=== PATIENT | female | born 1930 | race Caucasian/White ===

== ENCOUNTER 2020-05-30 15:04 | Observation (INO) | payer MEDICARE, OTHER ==
[2020-05-30] MEDS ORDERED: Lactated Ringers 1,000 ML IV SCH (17:30)
[2020-05-30] MEDS ORDERED: Voltaren GEL TP PRN (17:48)
[2020-05-30] MEDS ORDERED: TYLENOL 325 MG PO PRN (17:48)
[2020-05-30] MEDS: Decadron 4 MG INJ IV SCH (19:05)
[2020-05-30 20:47] LABS: Hematocrit 48.9 % (35-47); Hemoglobin 15.4 gm/dl (12.0-16.0); Mean Cell Volume 94.2 fl (78-100); Mean Corpuscular Hemoglobin 29.7 pg (26-32); Mean Corpuscular Hgb Concent. 31.5 g/dl (32-36); Mean Platelet Volume 12.3 fl (7.5-11.0); Platelet Count 111 K/mm3 (150-450); Red Blood Count 5.19 M/mm3 (4.1-5.4); Red Cell Distribution Width 14.6 % (11.5-14.0); White Blood Count 3.4 K/mm3 (4.0-10.5)
[2020-05-30 21:52] LABS: Slide Review YES
[2020-05-30] MEDS ORDERED: Zestril 5 MG PO SCH (22:00)
[2020-05-30] MEDS ORDERED: DESYREL 50 MG PO SCH (22:00)
[2020-05-30 22:08] LABS: ANION GAP 11.3 MEQ/L (5-15); BLOOD UREA NITROGEN 17 mg/dL (7-17); CHLORIDE 103 mmol/L (98-107); Calcium 7.8 mg/dL (8.4-10.2); Carbon Dioxide 22 mmol/L (22-30); Creatinine 1 0.59 mg/dL (0.52-1.04); EST GLOMERULAR FILTRATION RATE > 60.0 ML/MIN; Glucose 137 mg/dL (74-106); PREALBUMIN 6.87 mg/dL (17.6-36.0); Potassium 4.1 mmol/L (3.5-5.1); SODIUM 132 mmol/L (137-145)
[2020-05-31] MEDS ORDERED: Lactated Ringers 1,000 ML IV ONE (04:48)
[2020-05-31] MEDS: Decadron 4 MG INJ IV SCH (06:55)
[2020-05-31] MEDS ORDERED: Lexapro 10 MG PO SCH (10:00)
[2020-05-31] MEDS ORDERED: NON-FORMULARY ITEM (Potassium Chloride [Potassium Chloride] 10 MEQ) PO SCH (10:00)
[2020-05-31] MEDS ORDERED: ASCORBIC ACID 1000 MG PO SCH (10:00)
[2020-05-31] MEDS ORDERED: Klor Con 10 MEQ PO SCH (10:00)
[2020-05-31] MEDS ORDERED: Vitamin C 500 MG PO SCH (10:00)
[2020-05-31] MEDS ORDERED: Zestril 10 MG PO SCH (10:00)
[2020-05-31 12:02] VITALS: BP 133/76; PULSE 62; O2SAT 93
[2020-05-31] MEDS ORDERED: Lactated Ringers 1,000 ML IV SCH (17:30)
[2020-06-06] MEDS ORDERED: Fosamax 70 MG PO SCH (06:00)
--- NOTE | 2020-06-06 12:40 | SSS ---
DISCHARGE DIAGNOSES: 1) COVID. 2) ALZHEIMER'S. 3) DEMENTIA EXACERBATED BY COVID. HISTORY OF PRESENT ILLNESS: The patient is an 89 year old female who lives at [facility]. She was sent over because of increased confusion. She tested positive for COVID. She was one of the first patient's with COVID with an outbreak that started a couple of days ago. Numerous supervisors tested positive. She is 89 and is normally somewhat confused. She walks around and freely gives her opinion and is a nice interesting person. She said she is fine. She does not know why she is here. She cannot remember what we tell her. I discussed knowing her son and grandson, did not seem to register. She denies being real short of breath, denied any chest pain, denied any GI symptoms. She said her bowels are moving okay and she is urinating okay. REVIEW OF SYSTEMS: HEENT: Hard of hearing. Seems to see fair. CHEST: Short of breath when she exerts herself. CVS: Denies any heart pain, heart attacks. ABDOMEN: No nausea or vomiting. EXTREMITIES: She said her knees hurt all the time but she is ambulatory about her room. SOCIAL HISTORY: She is a , has numerous children. I know of daughters and one son who lives close by in [place]. PHYSICAL EXAMINATION: A tiny, frail white female who is really perky. HEENT: Pupils equal and reactive to light. NECK: Supple without adenopathy. CHEST: Clear. CVS: No murmurs or gallops. ABDOMEN: Thin. No masses or organomegaly. EXTREMITIES: Degenerative changes of the knees. She is ambulatory and getting out of bed and taking out her IV's without problems. PLAN: At this time she is stable. No signs of rapid deconditioning. [facility]. I think we will send her back to the COVID unit to be followed carefully. She is a No Code. No intubation. I advised them to keep her on oxygen, steroids such as Depakote. If she gets worse give her simvastatin. However at this time her breathing is breathing problem is pretty insignificant. Feel free to send back if she gets worse.
== END 2020-05-31 12:20 ==
LOC: MED SURG 16:10
PROVIDERS: ADMIT Family Medicine; ATTEND Family Medicine
DX: U07.1 COVID-19 (principal); E86.0 Dehydration; G30.9 Alzheimer's disease, unspecified; F02.80 Dementia in other diseases classified elsewhere, unspecified severity, without behavioral disturbance, psychotic disturbance, mood disturbance, and anxiety
CPT/HCPCS: 36415; 80048; 84134; 85027; 93268; 94762; G0378; J1100; A9270-GY